=== PATIENT | female | born 1995 | race African-American/Black ===

== ENCOUNTER 2019-05-21 17:28 | Emergency (ER) | payer OTHER ==
[~2019-05-21] VITALS: Ht 170.2 cm; Wt 87.1 kg
[2019-05-21 17:41] VITALS: BP 116/62
[2019-05-21] MEDS ORDERED: SERTRALINE HCL50 MG ORAL (17:45)
--- NOTE | 2019-05-21 17:50 | NUR ---
ED Nurse Note: Patient walked into ED c/o right upper abdominal pain for 3 days. patient reports she went to urgent care today and was told to go to ED for further evaluation patient is alert awake x4 ambulatory steady gait. breathing unlabored and even.
[2019-05-21] MEDS ORDERED: Ketorolac 30mg Inj IV ONE (18:15)
--- NOTE | 2019-05-21 18:17 | Emergency Room Report ---
History of Present Illness General Chief Complaint: Abdominal Pain Source: Patient Present Illness HPI 24-year-old female presents to the emergency department complaining of localized 10 out of 10 severity right upper quadrant pain that has been progressive x3 days. Patient is also reporting pain in the right shoulder she denies trauma or fall she denies lifting any heavy objects. Patient reports she is been taking many shallow breaths because taking a deep breath exacerbates her right upper quadrant abdominal pain. She denies fevers or chills. She denies noticeable pain after eating she states she is illicitly healthy and has no significant past medical history. She denies habitual NSAID use, alcohol use and denies history of acid reflux. Patient reports nausea but denies vomiting she denies constipation, diarrhea, back pain, or suspicion of . No other aggravating or relieving factors at this time. Allergies: Coded Allergies: No Known Allergies (Unverified , 05/21/19) Patient History Past Medical History: see triage record Past Surgical History: none Pertinent Family History: none Now: No Reviewed Nursing Documentation: PMH: Agreed; PSxH: Agreed Nursing Documentation-PMH Past Medical History: No Stated History Review of Systems All Other Systems: negative except mentioned in HPI Physical Exam Vital Signs Date Time Temp Pulse Resp B/P (MAP) Pulse Ox O2 Delivery O2 Flow Rate FiO2 05/21/19 17:41 99.0 77 17 116/62 (80) 99 Room Air Sp02 EP Interpretation: reviewed, normal General Appearance: no apparent distress, alert, GCS 15, non-toxic Head: normocephalic, atraumatic Eyes: bilateral eye normal inspection, bilateral eye PERRL ENT: hearing grossly normal, normal voice Neck: full range of motion Respiratory: chest non-tender, lungs clear, normal breath sounds, speaking full sentences Cardiovascular #1: regular rate, rhythm Gastrointestinal: normal bowel sounds, soft, tenderness - TTP RUQ, no significant Richardson sign but patient reports pain during specific exam. Rectal: deferred Genitourinary: normal inspection, no CVA tenderness Musculoskeletal: back normal, gait/station normal, normal range of motion, non- tender Neurologic: alert, oriented x3, responsive, motor strength/tone normal, sensory intact, normal gait, speech normal, grossly normal Psychiatric: judgement/insight normal Lymphatic: no adenopathy Medical Decision Making PA Attestation Dr. Guo is my supervising Physician whom patient management has been discussed with. Diagnostic Impression: Primary Impression: Abdominal pain Qualified Codes: R10.13 - Epigastric pain ER Course 24-year-old female presents to the emergency department complaining of localized 10 out of 10 severity right upper quadrant pain that has been progressive x3 days. Patient is also reporting pain in the right shoulder she denies trauma or fall she denies lifting any heavy objects. Patient reports she is been taking many shallow breaths because taking a deep breath exacerbates her right upper quadrant abdominal pain. She denies fevers or chills. She denies noticeable pain after eating she states she is illicitly healthy and has no significant past medical history. She denies habitual NSAID use, alcohol use and denies history of acid reflux. Patient reports nausea but denies vomiting she denies constipation, diarrhea, back pain, or suspicion of . No other aggravating or relieving factors at this time. Ddx considered but are not limited to Diverticulitis, acute appy, diarrhea,UC, PUD, GE, pancreatitis, gallstone, ovarian torsion, ectopic , PID tubo-ovarian abscess. Vital signs: are WNL, pt. is afebrile H&PE are most consistent with RUQ abdominal pain suspicious for gallbladder etiology. NAD, non-toxic in appearance. Physical exam does not suggest acute abdomen. ORDERS: -CBC, CMP, LIPASE: WNL/ unremarkable -UA: WNL -URINE HCG:Negative ED INTERVENTIONS: -Toradol IV -Mylanta -Viscous Lidocaine PO -I do not identify an emergent condition at this time. With current presentation , pt. is stable for close outpatient follow up and conservative treatment. D/ w pt. to return promptly to ED with worsening or new symptoms.- Pt. verbalizes' understanding and agreement with proposed treatment plan.proposed treatment plan. DISCHARGE: At this time pt. is stable for d/c to home. Will provide printed patient care instructions, and any necessary prescriptions. Care plan and follow up instructions have been discussed with the patient prior to discharge. Labs Test 05/21/19 17:56 White Blood Count 9.2 K/UL (4.8-10.8) Red Blood Count 4.54 M/UL (4.20-5.40) Hemoglobin 13.0 G/DL (12.0-16.0) Hematocrit 41.5 % (37.0-47.0) Mean Corpuscular Volume 91 FL (80-99) Mean Corpuscular Hemoglobin 28.5 PG (27.0-31.0) Mean Corpuscular Hemoglobin Concent 31.2 G/DL (32.0-36.0) Red Cell Distribution Width 12.5 % (11.6-14.8) Platelet Count 378 K/UL (150-450) Mean Platelet Volume 6.6 FL (6.5-10.1) Neutrophils (%) (Auto) 64.1 % (45.0-75.0) Lymphocytes (%) (Auto) 24.7 % (20.0-45.0) Monocytes (%) (Auto) 8.0 % (1.0-10.0) Eosinophils (%) (Auto) 1.5 % (0.0-3.0) Basophils (%) (Auto) 1.6 % (0.0-2.0) Urine Color Yellow Urine Appearance Clear Urine pH 6.5 (4.5-8.0) Urine Specific [place] 1.020 (1.005-1.035) Urine Protein Negative (NEGATIVE) Urine Glucose (UA) Negative (NEGATIVE) Urine Ketones Negative (NEGATIVE) Urine Blood Negative (NEGATIVE) Urine Nitrite Negative (NEGATIVE) Urine Bilirubin Negative (NEGATIVE) Urine Urobilinogen Normal MG/DL (0.0-1.0) Urine Leukocyte Esterase Negative (NEGATIVE) Urine HCG, Qualitative Negative (NEGATIVE) Sodium Level 141 MMOL/L (136-145) Potassium Level 4.0 MMOL/L (3.5-5.1) Chloride Level 108 MMOL/L (98-107) Carbon Dioxide Level 24 MMOL/L (21-32) Anion Gap 9 mmol/L (5-15) Blood Urea Nitrogen 11 mg/dL (7-18) Creatinine 0.6 MG/DL (0.55-1.30) Estimat Glomerular Filtration Rate > 60 mL/min (>60) Glucose Level 83 MG/DL (74-106) Calcium Level 8.8 MG/DL (8.5-10.1) Total Bilirubin 0.3 MG/DL (0.2-1.0) Aspartate Amino Transf (AST/SGOT) 27 U/L (15-37) Alanine Aminotransferase (ALT/SGPT) 12 U/L (12-78) Alkaline Phosphatase 72 U/L (46-116) Total Protein 7.9 G/DL (6.4-8.2) Albumin 3.3 G/DL (3.4-5.0) Globulin 4.6 g/dL Albumin/Globulin Ratio 0.7 (1.0-2.7) Lipase 172 U/L (73-393) Chest X-Ray Diagnostic Results Chest X-Ray Diagnostic Results : Chest X-Ray Ordered: Yes # of Views/Limited/Complete: 1 View Indication: Chest Pain EP Interpretation: Yes SABINA Xray: Interpretation reviewed, by supervising MD, and agrees with findings. Interpretation: no consolidation, no effusion, no pneumothorax, no acute cardiopulmonary disease Impression: No acute disease Electronically Signed by: Funmilayo Saleh PA-C CT/MRI/US Diagnostic Results CT/MRI/US Diagnostic Results : Imaging Test Ordered: Abdominal Ultrasound Impression " The gallbladder appears contracted without stones or caity-cholecystic free fluid seen. Wall measures 2 mm. CBD 4 mm. " Per official radiology report- Please see report for specific details. Last Vital Signs Date Time Temp Pulse Resp B/P (MAP) Pulse Ox O2 Delivery O2 Flow Rate FiO2 05/21/19 17:53 77 17 Room Air 05/21/19 17:41 99.0 116/62 99 Disposition: HOME, SELF-CARE Condition: Stable Scripts Lidocaine HCl 2% Viscous (Lidocaine HCl 2% Viscous) 100 Ml Solution 10 ML ORAL QID, #120 ML Prov: Funmilayo Saleh 05/21/19 Omeprazole (OMEPRAZOLE) 20 Mg Tablet.dr 20 MG ORAL DAILY, #14 TAB Prov: Funmilayo Saleh 05/21/19 Referrals: NOT CHOSEN IPA/,REFERRING (PCP) Patient Instructions: Abdominal Pain, Adult, Food Choices for Gastroesophageal Reflux Disease, Adult, [id number] Additional Instructions: ~ ~ An emergent medical condition has not been identified based on this patients presentation, exam and any necessary testing/imaging. The patient is determined to be stable for outpatient follow-up and management of symptoms by a primary care provider. Take medications as directed. Follow up with a Primary Care Provider in 3-5 days, even if your symptoms have resolved. Return sooner to ED if new symptoms occur, or current symptoms become worse. - Please note that this Emergency Department Report was dictated using [employer] drawer technology software, occasionally this can lead to erroneous entry secondary to interpretation by the dictation equipment. Funmilayo Saleh May 21, 2019 18:17
[2019-05-21 18:47] LABS: APPEARANCE,URINE CLEAR; BILIRUBIN, URINE NEGATIVE (NEGATIVE); GLUCOSE, URINE (UA) NEGATIVE (NEGATIVE); KETONES,URINE NEGATIVE (NEGATIVE); LEUKOCYTE ESTERASE ,URINE NEGATIVE (NEGATIVE); NITRITE,URINE NEGATIVE (NEGATIVE); PH,URINE 6.5 (4.5-8.0); PROTEIN,URINE NEGATIVE (NEGATIVE); UROBILINOGEN,URINE NORMAL MG/DL (0.0-1.0)
[2019-05-21 18:50] LABS: BASOPHILS % (AUTO) 1.6 % (0.0-2.0); EOSINOPHILS % (AUTO) 1.5 % (0.0-3.0); HEMATOCRIT 41.5 % (37.0-47.0); LYMPHOCYTES % (AUTO) 24.7 % (20.0-45.0); MEAN CORPUSCULAR VOLUME 91 FL (80-99); NEUTROPHILS % (AUTO) 64.1 % (45.0-75.0); PLATELET COUNT 378 K/UL (150-450); RED BLOOD COUNT 4.54 M/UL (4.20-5.40); RED CELL DISTRIBUTION WIDTH 12.5 % (11.6-14.8); WHITE BLOOD COUNT 9.2 K/UL (4.8-10.8)
[2019-05-21 18:51] LABS: COLOR,URINE YELLOW
[2019-05-21 19:02] LABS: ANION GAP 9 mmol/L (5-15); BLOOD UREA NITROGEN 11 mg/dL (7-18); CALCIUM 8.8 MG/DL (8.5-10.1); CARBON DIOXIDE 24 MMOL/L (21-32); CHLORIDE 108 MMOL/L (98-107); CREATININE 0.6 MG/DL (0.55-1.30); SODIUM 141 MMOL/L (136-145)
[2019-05-21 19:08] LABS: ALANINE AMINOTRANSFERASE 12 U/L (12-78); ALBUMIN 3.3 G/DL (3.4-5.0); ALBUMIN/GLOBULIN RATIO 0.7 (1.0-2.7); ALKALINE PHOSPHATASE 72 U/L (46-116); ASPARTATE AMINO TRANSFERASE 27 U/L (15-37); BILIRUBIN,TOTAL 0.3 MG/DL (0.2-1.0)
--- NOTE | 2019-05-21 19:14 | NUR ---
HAND-OFF: Report given to Luis A RN. patient is stable in bed. U/S by the bedside.
--- NOTE | 2019-05-21 19:18 | NUR ---
ED Nurse Note: Received report from MONY Weller, patient at no distress at this time. service tech/welder at bedside
--- NOTE | 2019-05-21 20:14 | Diagnostic Imaging Report ---
History: PAIN Exam: XR CXR 1 VIEW Comparison: None available FINDINGS: The lungs are clear. The cardiac and mediastinal contours are within limits. The visualized osseous structures appear within limits. IMPRESSION: No evidence of acute disease.
--- NOTE | 2019-05-21 20:19 | Diagnostic Imaging Report ---
History: ABD PAIN Exam: US ABDOMEN Comparison: None available FINDINGS: Visualized pancreas appears within limits. Inferior vena cava at the liver appears within limits. Abdominal aorta within limits. Liver measures 15 cm and appears within limits. Main portal vein is patent with flow towards the liver. Gallbladder appears contracted without stones or pericholecystic free fluid seen. Wall measures 2 mm. CBD 4 mm. No hydronephrosis or free fluid seen. Spleen measures 10.3 cm. IMPRESSION: Gallbladder appears contracted without stones or pericholecystic free fluid seen. Wall measures 2 mm. CBD 4 mm.
[2019-05-21] MEDS ORDERED: Lidocaine 2% Visc 15ml soln ORAL ONE (20:30)
[2019-05-21] MEDS ORDERED: Mylanta II UD 30ml ORAL ONE (20:30)
[2019-05-21] MEDS ORDERED: OMEPRAZOLE20 M3 ORAL (20:33)
[2019-05-21] MEDS ORDERED: LIDOCAINE VISC100 ML ORAL (20:33)
[2019-05-21 21:05] VITALS: BP 120/70
--- NOTE | 2019-05-21 21:05 | NUR ---
ER DISCHARGE NOTE: Patient is cleared to be discharged per ERMD, pt is aox4, on room air, with stable vital signs. pt was given dc and prescription instructions, pt was able to verbalize understanding, pt id band and iv site removed without complications. pt is able to ambulate with steady gait. pt took all belongings.
== END 2019-05-21 21:05 | disposition home or self-care (01) ==
LOC: EMR 18:11
DX: R10.13 Epigastric pain (principal); R07.9 Chest pain, unspecified; K21.9 Gastro-esophageal reflux disease without esophagitis; M25.511 Pain in right shoulder
CPT/HCPCS: 36415; 71045; 76700; 80053; 81003; 81025; 83690; 85025; 96374; 99284; J1885